=== PATIENT | female | born 1975 | race Two or more races ===

== ENCOUNTER → 2023-09-02 16:26 | Outpatient (REF) | payer BC, SELFPAY ==
[2023-09-02 18:54] LABS: Free T4 1.45 ng/dl (0.78-2.19)
[2023-09-02 19:08] LABS: TSH 0.46 uIU/ml (0.47-4.68)
[2023-09-04 11:49] LABS: Thyroid Peroxidase Ab (TPO) 0.3 IU/mL (0.0-9.0)
[2023-09-05 00:45] LABS: Thyroid Stim. Immunoglobulin <0.10 IU/L (<=0.54)
[2023-09-05 04:02] LABS: TSH Receptor Antibody <1.10 IU/L (<=1.75)
== END ==
LOC: REG 16:26
PROVIDERS: ATTENDING PHYSICIAN Internal Medicine Endocrinology, Diabetes & Metabolism; FAMILY PHYSICIAN Nurse Practitioner Family
DX: E04.2 Nontoxic multinodular goiter (principal)
CPT/HCPCS: 36415; 83520; 84439; 84443; 84445; 86376

== ENCOUNTER → 2023-09-24 11:33 | Outpatient (REF) | payer BC, SELFPAY | LOC: HWRAD 11:33 | PROVIDERS: ATTENDING PHYSICIAN Nurse Practitioner Family | DX: K59.00 Constipation, unspecified (principal); R11.0 Nausea; Z92.29 Personal history of other drug therapy; Z11.1 Encounter for screening for respiratory tuberculosis | CPT/HCPCS: 71046; 74018 ==

== ENCOUNTER → 2023-09-25 13:17 | Outpatient (REF) | payer BC, SELFPAY ==
[2023-10-10 00:31] LABS: HPV, High Risk Not Detected; HPV, High Risk Source Cervical
== END ==
LOC: CLAB 13:17
PROVIDERS: ATTENDING PHYSICIAN Advanced Practice Midwife
DX: Z01.419 Encounter for gynecological examination (general) (routine) without abnormal findings (principal); Z11.51 Encounter for screening for human papillomavirus (HPV)
CPT/HCPCS: 87624; G0123

== ENCOUNTER → 2023-09-25 14:48 | Outpatient (REF) | payer BC, SELFPAY | LOC: RAD 14:48 | PROVIDERS: ATTENDING PHYSICIAN Internal Medicine Endocrinology, Diabetes & Metabolism; FAMILY PHYSICIAN Nurse Practitioner Family | DX: E04.2 Nontoxic multinodular goiter (principal) | CPT/HCPCS: 76536 ==

== ENCOUNTER 2024-02-06 15:50 | Emergency (ER) | payer BC, SELFPAY ==
[2024-02-06 15:53] VITALS: BP 131/73
[2024-02-06 17:38] VITALS: BMI 23.3
--- NOTE | 2024-02-06 17:56 | ED.GENMED ---
History of Present Illness
General
Chief Complaint: Musculo-Skeletal Complaint
Source: patient
Exam Limitations: none
Time Seen by Provider: 02/06/24 17:56
Nursing documentation reviewed up to this point in time: agreed with
History of Present Illness
History of Present Illness:
48 y/o F
was in [place] 5 days ago and inversion injury to right ankle and has swelling pain an dbruising laterally
had xray in [place] which showed a fracture but she isnot sure where
she was put in a splint that was made of plaster but posterior and lateral onto the ankle and not fully casted
she flew home yesterday
and has had pain increased, only tried 200 mg motrin
no calf pain, numbness/tingling/weakness
Past History
Past History
ED Past Medical History: Hypothyroidism and Psychiatric (depression)
ED Past Surgical History: (X2)
Social History
Tobacco: Non-smoker
Alcohol: None
Drug: None
Personal:
Living: with family
Employment: Not employed
Family History
Family History: Other (Noncontributory)
Review of Systems
Review of Systems
Allergies reviewed?: Yes
All Other Systems: Not applicable
Phy Exam
Physical Exam
Physical Exam:
GENERAL: Alert , in no apparent distress, comfortable at rest
HEAD: NCAT
CV: 2+ DP PULSES B/L
NEUROLOGICAL: Alert and oriented, no focal neuro deficits, , 5/5 strength, sensation intact, unable to weight-bear on the right
SKIN: Warm and dry,
MUSCULOSKELETAL: Moderate right lateral ankle swelling with some bruising dependently inferior to the lateral malleolus, point tender to the lateral malleolus on the right side, stable ankle, no foot tenderness. Calf is soft, Achilles intact.
PSYCH: Normal and appropriate interaction.
Course
Orders/Labs/Results
Orders:
Orders
02/06/24 15:56
Ankle, Right 3 view CR [CR Ankle - Right Min 3 Views *] Urgent
Comment:
Reason For Exam: pain after a fall
02/06/24 18:37
Acetaminophen [Tylenol] 975 mg PO NOW STA
Ankle, Right 3 view CR [CR Ankle - Right Min 3 Views *] Urgent
Comment:
Reason For Exam: suspected fx, limited first xray
Foot, Right 3 View [CR Foot - Right Min 3 Views] Urgent
Comment:
Reason For Exam: suspected fx
Vital Signs
Initial and Last Documented VS:
Initial Vital Signs
Temp Pulse Resp BP Pulse Ox
98.2 F 64 20 131/73 98
02/06/24 15:53 02/06/24 15:53 02/06/24 15:53 02/06/24 15:53 02/06/24 15:53
Last Documented Vital Signs
Temp Pulse Resp BP Pulse Ox
98.2 F 66 20 123/71 98
02/06/24 15:53 02/06/24 20:00 02/06/24 15:53 02/06/24 20:00 02/06/24 15:53
MDM/Problems Addressed
Differential Diagnosis Includes:
Ankle fracture, ankle sprain
MDM/Problems Addressed:
48-year-old female who was [place] the [place] and had a an inversion right ankle injury and a fall. She is unable to weight-bear. Apparently there she had x-rays showing a fracture and was put in a plaster posterior splint. She had a lot of
pain on the flight home with her leg dependent seated on the long flight. Patient has not removed the splint. She has no tingling in her foot. On exam she has moderate swelling and bruising to the right lateral ankle which is stable. Her x-rays
initially were independently reviewed by me but because of the plaster splint was difficult to see. I remove the splint and refilled the ankle which shows a very subtle avulsion fracture of the right distal fibula which is likely from a ankle
sprain. This is a weightbearing as tolerated injury. She is unable to weight-bear and already has crutches but I will give her a walking boot so that when she can put pressure on her ankle she may. She was instructed to follow-up with orthopedics
this week.
*Critical Care Note
Total Time (30-74mins, 75-104mins- exclusive of procedures): Not Applicable
ED Attending Note
-
Portions of this chart may have been created with voice recognition software.� Occasional wrong word or��sound alike� substitutions may have occurred due to the inherent limitations of voice recognition software.
Discharge Plan
Departure
Patient Disposition: Home (Routine Discharge)
Date of Disposition: 02/06/24
Time of Disposition: 20:52
Patient with high blood pressure during this ER visit?: No
Condition: Fair
Covid-19: Not Applicable
Discharge Problem:
Avulsion fracture of ankle
Instructions: Ankle Fracture (DC), Sprain (DC)
Prescriptions:
No Action
flecainide 50 MG tablet
25 mg PO BID
metoprolol tartrate 25 MG tablet
25 mg PO BID
lorazepam 1 MG tablet
1 mg PO Q6HPRN PRN (Reason: anxiety) Qty: 8 0RF
Referrals:
Ty Dasilva CRNP [Family Provider] -
García Logan MD [Active] - Follow up in 5-7 days (ortho)
Stand Alone Forms: Return to Work
Activity Restrictions/Additional Instructions:
YOU HAVE A SMALL AVULSION FRACTURE OF YOUR DISTALFIBULA OF YOUR ANKLE
THIS IS CAUSED BY A SPRAINED LIGAMENT THAT PULLS THE PIECE OF BONE OFF
YOU CAN WEAR THE SPLINT OR THE BOOT AND AVOID PUTTING WEIGHT OR PUT WEIGHT ON IT TOLERATED, WHICH EVER FEELS BETTER
USE THE CRUTCHES TO HELP
MOTRIN AND TYLENOL FOR PAIN
ELEVATE YOUR FOOT
FOLLOW UP WITH ORTHOPEDICS THIS WEEK
RETURN FOR ANY CONCERNS.
Interventions
Interventions:
*Risk Screen - Suicide Last Done: 02/06/24 17:40
*General Assessment Last Done: 02/06/24 17:40
*Neglect/Abuse Screening Last Done: 02/06/24 17:40
ED- Fall Risk Assessment Last Done: 02/06/24 17:38
*ED COVID-19 Vaccine History Last Done: 02/06/24 17:38
*Nursing Disposition Last Done: 02/06/24 21:28
ED-Musculoskeletal Assessment Last Done: 02/06/24 17:39
Discharge Date and Time
Discharge Date/Time: 02/06/24 21:29
Print Language: LEBANESE
[2024-02-06] MEDS: TYLENOL 975 MG PO (18:41)
[2024-02-06 20:00] VITALS: BP 123/71
== END 2024-02-06 21:29 | disposition home or self-care (01) ==
LOC: EMR 15:50
PROVIDERS: EMERGENCY PHYSICIAN Student in an Organized Health Care Education/Training Program; FAMILY PHYSICIAN Nurse Practitioner Family
DX: S82.831A Other fracture of upper and lower end of right fibula, initial encounter for closed fracture (principal); W19.XXXA Unspecified fall, initial encounter; E03.9 Hypothyroidism, unspecified
CPT/HCPCS: 99283; 73610; 73630

== ENCOUNTER → 2024-03-05 09:20 | Outpatient (REF) | payer BC, SELFPAY | LOC: MRI 3T 09:20 | PROVIDERS: ATTENDING PHYSICIAN Physician Assistant; FAMILY PHYSICIAN Nurse Practitioner Family | DX: M25.571 Pain in right ankle and joints of right foot (principal) | CPT/HCPCS: 73721 ==

== ENCOUNTER → 2024-03-08 11:46 | Outpatient (REF) | payer BC, SELFPAY ==
[2024-03-08 16:05] LABS: Free T4 1.54 ng/dl (0.78-2.19)
[2024-03-08 16:19] LABS: TSH 0.42 uIU/ml (0.47-4.68)
[2024-03-11 02:24] LABS: Thyroid Peroxidase Ab (TPO) <0.3 IU/mL (0.0-9.0)
[2024-03-11 03:34] LABS: TSH Receptor Antibody <1.10 IU/L (<=1.75)
== END ==
LOC: HWLAB 11:46
PROVIDERS: ATTENDING PHYSICIAN Internal Medicine Endocrinology, Diabetes & Metabolism; FAMILY PHYSICIAN Nurse Practitioner Family
DX: E04.2 Nontoxic multinodular goiter (principal)
CPT/HCPCS: 36415; 83520; 84439; 84443; 84445; 86376

== ENCOUNTER → 2024-03-28 14:00 | Outpatient (REF) | payer BC, SELFPAY ==
[2024-03-30 22:05] LABS: Bacterial Vaginosis by TMA Positive; Candida glabrata by TMA Negative; Candida species by TMA Negative; Trichomonas vaginalis by TMA Negative
== END ==
LOC: CPAP 14:00
PROVIDERS: ATTENDING PHYSICIAN Advanced Practice Midwife
DX: B37.31 Acute candidiasis of vulva and vagina (principal); N76.0 Acute vaginitis
CPT/HCPCS: 81513; 87481; 87661

== ENCOUNTER 2024-04-14 16:45 | Outpatient (RCR) | payer BC, SELFPAY | END 2024-04-14 23:59 | disposition home or self-care (01) | LOC: RPT 16:45 | PROVIDERS: ATTENDING PHYSICIAN Physician Assistant; FAMILY PHYSICIAN Nurse Practitioner Family | DX: S82.839D Other fracture of upper and lower end of unspecified fibula, subsequent encounter for closed fracture with routine healing (principal); Z73.6 Limitation of activities due to disability | CPT/HCPCS: 97010; 97110; 97112; 97140; 97162; 97530 ==

== ENCOUNTER 2024-05-10 17:07 | Outpatient (RCR) | payer BC, SELFPAY | END 2024-05-10 23:59 | disposition home or self-care (01) | LOC: RPT 17:07 | PROVIDERS: ATTENDING PHYSICIAN Physician Assistant; FAMILY PHYSICIAN Nurse Practitioner Family | DX: S82.839D Other fracture of upper and lower end of unspecified fibula, subsequent encounter for closed fracture with routine healing (principal); Z73.6 Limitation of activities due to disability | CPT/HCPCS: 97110; 97112; 97140; 97530 ==

== ENCOUNTER → 2024-06-03 18:02 | Outpatient (REF) | payer BC, SELFPAY | LOC: CLAB 18:02 | PROVIDERS: ATTENDING PHYSICIAN Dentist Oral and Maxillofacial Surgery | DX: D16.5 Benign neoplasm of lower jaw bone (principal) | CPT/HCPCS: 88305 ==

== ENCOUNTER 2024-06-07 15:02 | Outpatient (RCR) | payer BC, SELFPAY | END 2024-06-07 23:59 | disposition home or self-care (01) | LOC: RPT 15:02 | PROVIDERS: ATTENDING PHYSICIAN Physician Assistant; FAMILY PHYSICIAN Nurse Practitioner Family | DX: S82.839D Other fracture of upper and lower end of unspecified fibula, subsequent encounter for closed fracture with routine healing (principal); Z73.6 Limitation of activities due to disability | CPT/HCPCS: 97110; 97112; 97140 ==

== ENCOUNTER → 2024-06-13 07:43 | Outpatient (REF) | payer BC, SELFPAY ==
[2024-06-13 09:38] LABS: ALT (SGPT) 16 U/L (0-35); AST (SGOT) 21 U/L (14-36); Albumin 4.4 g/dl (3.5-5.0); Alkaline Phosphatase 56 U/L (38-126); Blood Urea Nitrogen 15 mg/dl (7-17); Calcium 9.3 mg/dl (8.4-10.2); Carbon Dioxide 30 mmol/L (22-30); Chloride 102 mmol/L (98-107); Glucose 96 mg/dl (70-99); HDL Cholesterol 69 mg/dl; LDL Cholesterol, Calculated 113 mg/dl; Sodium 139 mmol/L (135-145); Total Bilirubin < 0.1 mg/dl (0.2-1.3); Total Cholesterol 196 mg/dl (50-199); Total Protein 6.8 g/dl (6.3-8.2); Triglyceride 72 mg/dl (10-149); Very Low Density Lipoprotein 14 mg/dl (0-30); eGFR > 60.00
[2024-06-13 09:45] LABS: % Basophils 1.2 % (0-2); % Eosinophils 2.4 % (0-6); % Immature Granulocytes 0.3 % (0-0.5); % Lymphocytes 31.4 % (20.5-51.1); % Monocytes 8.3 % (1.7-9.3); % Neutrophils 56.4 % (42.2-75.2); Absolute Eosinophils 0.1 10^3/uL (0-0.7); Absolute Lymphocytes 1.1 10^3/uL (1.2-3.4); Absolute Monocytes 0.3 10^3/uL (0.1-0.6); Absolute Neutrophils 1.9 10^3/uL (1.4-6.5); Hematocrit 40.9 % (37.0-47.0); Hemoglobin 13.3 g/dL (12.0-16.0); Mean Corp Hgb Conc. 32.5 g/dL (33.0-37.0); Mean Corpuscular Hgb 29.1 pg (27.0-31.0); Mean Corpuscular Volume 89.5 fL (81.0-99.0); Mean Platelet Volume 10.8 fL (7.4-10.4); Nucleated Red Blood Cells % 0 %; Platelet Count 243 10^3/uL (130-400); Red Blood Cell Count 4.57 10^6/uL (4.20-5.40); Red Cell Dist. Width 12.2 % (11.5-14.5); White Blood Cell Count 3.4 10^3/uL (4.8-10.8)
[2024-06-13 09:56] LABS: Vitamin D, 25-OH*** 37.8 ng/mL (30-80)
[2024-06-13 10:09] LABS: TSH Reflex To Free T4 0.58 uIU/ml (0.47-4.68)
== END ==
LOC: HWLAB 07:43
PROVIDERS: ATTENDING PHYSICIAN Nurse Practitioner Family
DX: J30.9 Allergic rhinitis, unspecified (principal); E05.90 Thyrotoxicosis, unspecified without thyrotoxic crisis or storm; E55.9 Vitamin D deficiency, unspecified; R00.2 Palpitations
CPT/HCPCS: 36415; 80053; 80061; 82306; 84443; 85025

== ENCOUNTER → 2024-06-22 16:02 | Outpatient (REF) | payer BC, SELFPAY | LOC: MRI 3T 16:02 | PROVIDERS: ATTENDING PHYSICIAN Student in an Organized Health Care Education/Training Program; FAMILY PHYSICIAN Nurse Practitioner Family | DX: M25.571 Pain in right ankle and joints of right foot (principal) | CPT/HCPCS: 73718; 73721 ==

== ENCOUNTER 2024-07-12 18:15 | Outpatient (RCR) | payer BC, SELFPAY | END 2024-07-12 23:59 | disposition home or self-care (01) | LOC: RPT 18:15 | PROVIDERS: ATTENDING PHYSICIAN Physician Assistant; FAMILY PHYSICIAN Nurse Practitioner Family | DX: S82.839D Other fracture of upper and lower end of unspecified fibula, subsequent encounter for closed fracture with routine healing (principal); Z73.6 Limitation of activities due to disability | CPT/HCPCS: 97110; 97112; 97140; 97530 ==

== ENCOUNTER → 2024-11-25 15:58 | Outpatient (REF) | payer BC, SELFPAY ==
[2024-11-25 16:51] LABS: % Basophils 0.7 % (0-2); % Eosinophils 1.8 % (0-6); % Lymphocytes 21.2 % (20.5-51.1); % Monocytes 7.6 % (1.7-9.3); % Neutrophils 68.7 % (42.2-75.2); Absolute Eosinophils 0.1 10^3/uL (0-0.7); Absolute Lymphocytes 1.2 10^3/uL (1.2-3.4); Absolute Monocytes 0.4 10^3/uL (0.1-0.6); Absolute Neutrophils 3.8 10^3/uL (1.4-6.5); Hematocrit 39.8 % (37.0-47.0); Hemoglobin 13.6 g/dL (12.0-16.0); Mean Corp Hgb Conc. 34.2 g/dL (33.0-37.0); Mean Corpuscular Hgb 29.6 pg (27.0-31.0); Mean Corpuscular Volume 86.7 fL (81.0-99.0); Mean Platelet Volume 11.1 fL (7.4-10.4); Nucleated Red Blood Cells % 0 %; Platelet Count 234 10^3/uL (130-400); Red Blood Cell Count 4.59 10^6/uL (4.20-5.40); Red Cell Dist. Width 12.9 % (11.5-14.5); White Blood Cell Count 5.6 10^3/uL (4.8-10.8)
[2024-11-25 17:00] LABS: Urine Albumin 1+ (Neg - Trace); Urine Bilirubin Negative (Negative); Urine Character Clear (Clear); Urine Color Yellow; Urine Glucose 1+ (Negative); Urine Ketone Negative (Negative); Urine Leukocyte 2+ (Negative); Urine Nitrite Negative (Negative); Urine Occult Blood 2+ (Negative); Urine Specific Gravity 1.025 (<1.030); Urine Urobilinogen Negative (Neg - 1+)
[2024-11-25 17:12] LABS: Urine Mucus Few; Urine Red Blood Cell 0-2 /HPF (0-2)
[2024-11-25 17:13] LABS: ALT (SGPT) 14 U/L (0-35); AST (SGOT) 17 U/L (14-36); Albumin 4.6 g/dl (3.5-5.0); Alkaline Phosphatase 61 U/L (38-126); Blood Urea Nitrogen 13 mg/dl (7-17); Calcium 9.6 mg/dl (8.4-10.2); Carbon Dioxide 27 mmol/L (22-30); Chloride 107 mmol/L (98-107); Glucose 122 mg/dl (70-99); Iron 76 ug/dl (37-170); Potassium 3.8 mmol/L (3.5-5.1); Sodium 142 mmol/L (135-145); Total Bilirubin 0.3 mg/dl (0.2-1.3); Total Protein 7.3 g/dl (6.3-8.2); Urine Bacteria Many (Negative); Urine White Cell 30-40 /HPF (0-5); eGFR > 60.00
[2024-11-25 17:22] LABS: Percent Saturation 22 % (20-50); Total Iron Binding Capacity 335 ug/dl (265-497)
[2024-11-25 17:31] LABS: Free T3 3.25 pg/ml (2.77-5.27); Free T4 1.19 ng/dl (0.78-2.19); Vitamin D, 25-OH*** 122 ng/mL (30-80)
[2024-11-25 17:49] LABS: Ferritin 15.4 ng/ml (6.24-137)
[2024-11-25 18:05] LABS: Vitamin B12 412 pg/ml (239-931)
== END ==
LOC: REG 15:58
DX: R10.9 Unspecified abdominal pain (principal); R53.83 Other fatigue
CPT/HCPCS: 36415; 74018; 80053; 81003; 81015; 82306; 82607; 82728; 83540; 83550; 84439; 84443; 84481; 85025; 87086

== ENCOUNTER → 2024-12-08 15:46 | Outpatient (REF) | payer BC, SELFPAY | LOC: RAD 15:46 | PROVIDERS: ATTENDING PHYSICIAN Specialist; FAMILY PHYSICIAN Nurse Practitioner Family | DX: N23 Unspecified renal colic (principal); R10.9 Unspecified abdominal pain | CPT/HCPCS: 74176; 87086 ==

== ENCOUNTER → 2024-12-19 06:43 | Outpatient (REF) | payer BC, SELFPAY ==
[2024-12-19 09:40] LABS: Urine Character Clear (Clear)
[2024-12-19 09:51] LABS: Urine Red Blood Cell 0-2 /HPF (0-2); Urine White Cell 0-2 /HPF (0-5)
[2024-12-19 10:03] LABS: Magnesium 2.1 mg/dl (1.6-2.3)
[2024-12-20 23:19] LABS: EBV-VCA IgM Antibodies <10.0 U/mL (0.0-43.9)
[2024-12-20 23:35] LABS: EBV-VCA IgG Antibodies >750.0 U/mL (0.0-21.9)
== END ==
LOC: HWLAB 06:43
PROVIDERS: ATTENDING PHYSICIAN Nurse Practitioner Family
DX: R10.9 Unspecified abdominal pain (principal); R00.2 Palpitations; R53.83 Other fatigue; T45.2X1A Poisoning by vitamins, accidental (unintentional), initial encounter
CPT/HCPCS: 36415; 81003; 81015; 83735; 86308; 86665; 87086

== ENCOUNTER → 2024-12-20 14:09 | Outpatient (REF) | payer BC, SELFPAY | LOC: REG 14:09 | PROVIDERS: ATTENDING PHYSICIAN Nurse Practitioner Family | DX: T45.2X1A Poisoning by vitamins, accidental (unintentional), initial encounter (principal) | CPT/HCPCS: 36415; 82330 ==

== ENCOUNTER 2025-04-01 09:52 | Emergency (ER) | payer OTHER, SELFPAY ==
[2025-04-01 09:54] VITALS: BP 146/83
[2025-04-01 11:11] VITALS: BP 132/70
[2025-04-01 11:39] LABS: Hematocrit 43.7 % (37.0-47.0); Hemoglobin 15.2 g/dL (12.0-16.0); Mean Corp Hgb Conc. 34.8 g/dL (33.0-37.0); Mean Corpuscular Volume 85.2 fL (81.0-99.0); Nucleated Red Blood Cells % 0 %; Platelet Count 239 10^3/uL (130-400); Red Cell Dist. Width 12.2 % (11.5-14.5)
[2025-04-01 11:54] VITALS: BMI 25.8
[2025-04-01 12:00] VITALS: BP 130/68
[2025-04-01 12:22] LABS: ALT (SGPT) 14 U/L (0-35); AST (SGOT) 20 U/L (14-36); Albumin 4.7 g/dl (3.5-5.0); Alkaline Phosphatase 59 U/L (38-126); Blood Urea Nitrogen 12 mg/dl (7-17); Calcium 9.4 mg/dl (8.4-10.2); Carbon Dioxide 26 mmol/L (22-30); Chloride 105 mmol/L (98-107); Estimated Creatinine Clearance 85 ml/min; Glucose 126 mg/dl (70-99); Magnesium 1.9 mg/dl (1.6-2.3); Potassium 4.1 mmol/L (3.5-5.1); Sodium 138 mmol/L (135-145); Total Protein 7.4 g/dl (6.3-8.2); eGFR > 60.00
[2025-04-01 12:25] LABS: TSH 0.27 uIU/ml (0.47-4.68)
[2025-04-01 13:00] VITALS: BP 127/74
[2025-04-01 14:00] VITALS: BP 128/72
--- NOTE | 2025-04-01 14:43 | ED.GENMED ---
History of Present Illness
General
Chief Complaint: Cardiac Symptoms
Source: patient
Time Seen by Provider: 04/01/25 10:28
History of Present Illness
History of Present Illness:
Note:
CHIEF COMPLAINT(S)
Palpitations and short-lived panic episode.
HISTORY OF PRESENT ILLNESS
The patient is a 49-year-old female presenting with complaints of a sudden episode of palpitations that occurred earlier today. She reported that her heart rate increased to 183 beats per minute. This episode was associated with a feeling of
breathlessness and a brief panic response. Her blood pressure was initially recorded at 140, but after stepping outside to take deep breaths, it decreased to 110. She described the incident as lasting a few minutes and accompanied by feelings of
warmth in her chest, as well as thickness in her head and arm. She denied chest pain but noted a hot and cold sensation in her chest. The patient has experienced similar episodes in the past, attributing them to panic attacks.
She has a history of thyroid issues, which fluctuate in levels, though her recent measures were reportedly normal despite being slightly low. She expressed that she managed this previously with adjustments by her physician, and currently, she is not
on thyroid medication. Recently diagnosed with vitamin deficiencies three months ago.
The patient denied smoking, alcohol consumption, and drug use. She reported being allergic to certain medications and takes [id number] Advil, but did not specify any prescription medications.
PAST MEDICAL AND SURGICAL HISTORY
The patient has a history of thyroid irregularities with levels fluctuating between high and low. Recent check-up confirmed normal albeit low thyroid function.
SOCIAL HISTORY
The patient denies any use of tobacco, alcohol, or illicit drugs.
REVIEW OF SYSTEMS
- Cardiovascular: Episodes of palpitations; reported decrease in heart rate after breathing exercises.
- Respiratory: Brief sensation of breathlessness during the episode.
- Neurological: Described a sensation of thickness in the head and arm during palpitations.
PHYSICAL EXAM
General: Alert, no acute distress.
Skin: Warm, dry.
Head: Normocephalic, atraumatic.
Neck: Supple, trachea midline.
Eyes, Ears, Nose, Mouth, and Throat: Oral mucosa moist.
Cardiovascular: Heart regular without murmur, heart rate normal sinus rhythm at a rate of 92, no edema.
Respiratory: Respirations are non-labored.
Gastrointestinal: Abdomen nondistended.
Back: Normal range of motion, normal alignment.
Musculoskeletal: Normal range of motion and strength.
Neurological: Alert and oriented to person, place, time, and situation, no focal neurological deficit observed.
Psychiatric: Cooperative, appropriate mood and affect.
PLAN
- Blood work to be drawn for electrolyte levels and general health assessment.
- Continuous monitoring of the heart rate to observe current rhythm.
- Consideration for placing a home monitor if recurrence of arrhythmia is suspected.
- Possible intravenous fluid administration to maintain vitals and hydration.
- Advisement for follow-up with a tennis camp instructor for possible future arrhythmia episodes.
DIFFERENTIAL DIAGNOSIS
The Differential Diagnosis includes, in no particular order and is not limited to:
1. Paroxysmal supraventricular tachycardia
2. Anxiety-induced palpitations
3. Hyperthyroidism
4. Panic disorder
5. Atrial fibrillation
6. Hyperventilation syndrome
7. Hypoglycemia
8. Electrolyte imbalance
9. Thyroid dysfunction
10. Cardiac arrhythmia
CARE-UPDATE
04/01/25 - 14:22
Patient exhibits occasional episodes of atrial tachycardia, with heart rate fluctuations observed between 102 and 117 bpm, deemed electrical in nature without indications of coronary issues. Current labs, aside from pending thyroid results, show no
abnormalities. No evidence of myocardial infarction. Discussed management options: referral to cardiology for further evaluation or initiation of low-dose medication to stabilize heart rate. History of prior ablation for arrhythmia, with no
subsequent medication prescribed; thyroid management previously recommended. Plan to liaise with Dr. Hernandez partner for coordinated care.
EKG
My independent EKG interpretation is:
- Time of EKG: Not specified
- Rhythm: Sinus rhythm
- Heart Rate: 100 beats per minute
- [place]: Normal
- Intervals: Normal
- Notable Findings: Variability in the rate across the EKG
- Abnormalities: None specified
Disposition:
SUMMARY OF ENCOUNTER
The patient is a 49-year-old female with a history of supraventricular tachycardia (SVT) and previous ablation presenting with a reported heart rate of 180 beats per minute at home. In the emergency department, her heart rate ranged from the high
80s to 120, suggesting a possible natural tachycardia or missed SVT event. Laboratory tests showed normal CBC and CMP, with a slightly low TSH of 0.27 and slightly high T4 at 14.1. The case was discussed with cardiology, and the decision was made to
restart metoprolol (brand name Toprol-XL) at 12.5 mg. Cardiology will arrange for a Holter monitor and outpatient follow-up.
MANAGEMENT OF THE PATIENTS CARE WAS DISCUSSED WITH
Discussed with Dr. Correia, tennis camp instructor.
PLAN
Restart metoprolol (Toprol-XL) 12.5 mg and arrange for a Holter monitor and follow-up with cardiology as an outpatient.
INDEPENDENT REVIEW OF LABS AND INTERPRETATION OF TESTS
- My independent review of CBC is normal.
- My independent review of CMP is normal.
- My independent review of thyroid function tests shows TSH is slightly low at 0.27 and T4 is slightly high at 14.1.
FOLLOW-UP INSTRUCTIONS
Arrange follow-up with cardiology for Holter monitoring and further evaluation.
MEDICATION RECONCILIATION
Metoprolol (Toprol-XL) 12.5 mg to be restarted.
MEDICAL DECISION MAKING
- Number and Complexity of Problems Addressed: Chronic conditions affecting care include supraventricular tachycardia and thyroid dysfunction.
- Data:
- Category 1:
- My independent review of CBC, CMP, and thyroid function tests.
- Category 3: Discussion of management was conducted with tennis camp instructor Dr. Correia.
- Risk: Prescription medication was prescribed, specifically metoprolol (Toprol-XL) 12.5 mg. Consideration of Admission/Observation: Escalation of care including admission/observation was considered given the complexity and risk of the patients
presenting complaint, exam findings, and/or underlying comorbidities. However, ultimately, I feel the patient is safe for outpatient management with close follow-up. Reasoning: Work-up reassuring, does not reveal any acute life/organ-threatening
processes, the patients symptoms well controlled upon reevaluation, reexamination is reassuring, vitals are stable, patient agreeable with discharge, reliable for follow-up.
DIAGNOSIS
- Supraventricular tachycardia (I47.1)
- Thyroid dysfunction (E07.9)
Past History
Past History
ED Past Medical History: Hypothyroidism and Psychiatric (depression)
ED Past Surgical History: (X2)
Social History
Tobacco: Non-smoker
Alcohol: None
Drug: None
Personal:
Living: with family
Employment: Not employed
Family History
Family History: Other (Noncontributory)
Phy Exam
Physical Exam
Physical Exam:
.
Course
Orders/Labs/Results
Orders:
Orders
04/01/25 09:55
EKG [Electrocardiogram (*1)] Urgent
Reason for Study: Palpitations
EKG- Treatment ONCE
04/01/25 11:27
Complete Blood Count/With Diff Urgent
Comprehensive Metabolic Panel Urgent
Magnesium Urgent
TSH Urgent
Total Thyroxine Urgent
Comment: ADD ON
04/01/25 13:30
Add On- LAB Urgent
Tests Added?: T3, T4
Abnormal Lab Results
04/01/25
11:27
MPV 10.6 H fL
(7.4-10.4)
Absolute Neuts (auto) 6.7 H 10^3/uL
(1.4-6.5)
Absolute Lymphs (auto) 0.7 L 10^3/uL
(1.2-3.4)
Neutrophils % 85.4 H %
(42.2-75.2)
Lymphocytes % 8.8 L %
(20.5-51.1)
Glucose 126 H mg/dl
(70-99)
TSH 0.27 L uIU/ml
(0.47-4.68)
Thyroxine (T4) 14.10 H ug/dl
(5.5-11.0)
04/01/25 11:27
04/01/25 11:27
Vital Signs
Initial and Last Documented VS:
Initial Vital Signs
Temp Pulse Resp BP Pulse Ox
97.7 F 88 16 146/83 100
04/01/25 09:54 04/01/25 09:54 04/01/25 09:54 04/01/25 09:54 04/01/25 09:54
Last Documented Vital Signs
Temp Pulse Resp BP Pulse Ox
97.7 F 100 20 128/72 100
04/01/25 09:54 04/01/25 14:00 04/01/25 14:00 04/01/25 14:00 04/01/25 14:00
*Pulse Oximetry
SaO2: 100
Oxygen Mode of Delivery: Room air
Patient hypoxic: no
*Critical Care Note
Total Time (30-74mins, 75-104mins- exclusive of procedures): Not Applicable
ED Attending Note
-
Portions of this chart may have been created with voice recognition software.� Occasional wrong word or��sound alike� substitutions may have occurred due to the inherent limitations of voice recognition software.
Discharge Plan
Departure
Patient Disposition: Home (Routine Discharge)
Date of Disposition: 04/01/25
Time of Disposition: 14:44
Patient with high blood pressure during this ER visit?: No
Discharge Problem:
Atrial tachycardia, Supraventricular tachycardia, Thyroid dysfunction
Instructions: Tachycardia, Supraventricular tachycardia (SVT)
Prescriptions:
New
metoprolol succinate [Toprol XL] 25 mg tablet extended release 24 hr
25 mg PO DAILY Qty: 30 0RF
No Action
flecainide 50 MG tablet
25 mg PO BID
metoprolol tartrate 25 MG tablet
25 mg PO BID
lorazepam 1 MG tablet
1 mg PO Q6HPRN PRN (Reason: anxiety) Qty: 8 0RF
Referrals:
Ty Dasilva CRNP [Family Provider, Family Practice]
Activity Restrictions/Additional Instructions:
Please see cardiology next 3 days for follow-up and reevaluation and to set up a Holter monitor. Return immediately for chest pain, shortness of breath, lightheadedness, passing out episode, palpitations or any other concerns. It is likely that
cardiology will call you on Thursday to set up follow-up.
Please have your doctor follow-up on your thyroid studies.
Interventions
Interventions:
*Risk Screen - Suicide Last Done: 04/01/25 09:54
*General Assessment Last Done: 04/01/25 11:55
*Neglect/Abuse Screening Last Done: 04/01/25 09:54
*ED- Fall Risk Assessment Last Done: 04/01/25 11:55
*ED COVID-19 Vaccine History Last Done: 04/01/25 11:55
*ED Influenza Vaccine History Last Done: 04/01/25 11:55
ED- Pulmonary Assessment Last Done: 04/01/25 12:30
ED- Cardiac Assessment Last Done: 04/01/25 12:30
Discharge Date and Time
Print Language: SAUDI ARABIAN
== END 2025-04-01 15:03 | disposition home or self-care (01) ==
LOC: EMR 09:52
PROVIDERS: EMERGENCY PHYSICIAN Emergency Medicine; FAMILY PHYSICIAN Nurse Practitioner Family
DX: I47.19 Other supraventricular tachycardia (principal); E07.9 Disorder of thyroid, unspecified
CPT/HCPCS: 99284; 80053; 83735; 84436; 84443; 84480; 85025; 93005

== ENCOUNTER → 2025-04-14 08:59 | Outpatient (REF) | payer OTHER, SELFPAY ==
[2025-04-14 11:01] LABS: TSH 0.24 uIU/ml (0.47-4.68)
== END ==
LOC: WDC 08:59
PROVIDERS: ATTENDING PHYSICIAN Advanced Practice Midwife; PRIMARYCARE PHYSICIAN Nurse Practitioner Family; REFERRING PHYSICIAN Internal Medicine Endocrinology, Diabetes & Metabolism
DX: E04.2 Nontoxic multinodular goiter (principal); N64.4 Mastodynia
CPT/HCPCS: 36415; 76642; 77063; 77067; 84439; 84443

== ENCOUNTER 2025-04-18 22:44 | Emergency (ER) | payer OTHER, SELFPAY ==
[2025-04-18 22:48] VITALS: BP 140/86
[2025-04-18 23:03] VITALS: BP 140/81
[2025-04-19] VITALS: BP 131/78
[2025-04-19 00:29] LABS: Hematocrit 39.8 % (37.0-47.0); Hemoglobin 13.6 g/dL (12.0-16.0); Mean Corp Hgb Conc. 34.2 g/dL (33.0-37.0); Mean Corpuscular Volume 85.4 fL (81.0-99.0); Nucleated Red Blood Cells % 0 %; Platelet Count 222 10^3/uL (130-400); Red Cell Dist. Width 12.5 % (11.5-14.5)
[2025-04-19 00:50] LABS: ALT (SGPT) 14 U/L (0-35); AST (SGOT) 19 U/L (14-36); Albumin 4.7 g/dl (3.5-5.0); Alkaline Phosphatase 54 U/L (38-126); Blood Urea Nitrogen 13 mg/dl (7-17); Calcium 9.6 mg/dl (8.4-10.2); Carbon Dioxide 28 mmol/L (22-30); Chloride 106 mmol/L (98-107); Glucose 98 mg/dl (70-99); Potassium 4.5 mmol/L (3.5-5.1); Sodium 142 mmol/L (135-145); Total Protein 7.2 g/dl (6.3-8.2); eGFR > 60.00
[2025-04-19 01:00] VITALS: BP 121/75
--- NOTE | 2025-04-19 01:48 | ED.GENMED ---
History of Present Illness
General
Chief Complaint: Blood Pressure Problem
Time Seen by Provider: 04/19/25 01:05
History of Present Illness
History of Present Illness:
49-year-old female with history of atrial tachycardia presenting to the emergency department for elevated blood pressure and heart rate. Patient reports that symptoms started prior to arrival. She notes that she woke up shaking and checked her
blood pressure, noted that it was elevated. Her heart rate was also high. Patient reports that she was seen in the hospital on 03/22 for similar symptoms, found to be in atrial tachycardia. Her thyroid levels were also off. She was restarted on
metoprolol, however has only taken 2 doses of the metoprolol. She also has since made an appointment with her fashion adviser. Her cardiology appointment is not until May. Reports history of tachycardia in the past, at which time she did
require an ablation several years ago. Notes some midline chest discomfort. Difficulty breathing. Denies history of PE, recent surgery, recent travel. Denies additional acute medical complaints
Past History
Past History
ED Past Medical History: Hypothyroidism and Psychiatric (depression)
ED Past Surgical History: (X2)
Social History
Tobacco: Non-smoker
Alcohol: None
Drug: None
Personal:
Living: with family
Employment: Not employed
Family History
Family History: Other (Noncontributory)
Phy Exam
Physical Exam
Physical Exam:
General: Well-appearing, no clinical signs of dehydration, nontoxic and in no acute distress
HEENT: protecting airway
Neck: appears supple
CV: Tachycardia, regular rhythm, no evidence of cyanosis
Resp: No accessory muscle use, no increased work of breathing, lungs clear to auscultation bilaterally
Abd: No distention
Extremities: No deformities, no swelling
Neuro: alert, no focal neurologic deficit
: deferred
Rectal: deferred
Psych: Normal affect
Skin: Intact
Scores
Heart Score for Chest Pain Patients
STEMI patient?: No
History: Slightly or Non-Suspicious
ECG: Normal
Age: >45 - <65 years
Risk Factors: 1 or 2 Risk Factors
Troponin: </= Normal Limit
Heart Score for Chest Pain Patients: 2
Heart Score Risk: 2.5% MACE over next 6 weeks
Course
Orders/Labs/Results
Orders:
Orders
04/18/25 22:47
CBC/With Diff [Complete Blood Count/With Diff] Urgent
CMP [Comprehensive Metabolic Panel] Urgent
04/18/25 22:48
EKG [Electrocardiogram (*1)] Urgent
Reason for Study: Tachycardia
EKG- Treatment ONCE
04/19/25 01:49
D-Dimer Urgent
Metoprolol [Lopressor] 25 mg PO NOW STA
Abnormal Lab Results
04/19/25
00:18
MPV 10.6 H fL
(7.4-10.4)
Absolute Lymphs (auto) 0.8 L 10^3/uL
(1.2-3.4)
Neutrophils % 80.7 H %
(42.2-75.2)
Lymphocytes % 11.9 L %
(20.5-51.1)
04/19/25 00:18
04/19/25 00:18
Vital Signs
Initial and Last Documented VS:
Initial Vital Signs
Temp Pulse Resp BP Pulse Ox
98.7 F 104 15 140/86 99
04/18/25 22:48 04/18/25 22:48 04/18/25 22:48 04/18/25 22:48 04/18/25 22:48
Last Documented Vital Signs
Temp Pulse Resp BP Pulse Ox
98.7 F 89 16 142/88 99
04/18/25 22:48 04/19/25 02:15 04/19/25 02:15 04/19/25 02:00 04/19/25 02:15
MDM/Problems Addressed
MDM/Problems Addressed:
49-year-old female with prior history of tachycardia presenting to the emergency department for elevated blood pressure and heart rate. Vital signs on arrival significant for high blood pressure and tachycardia, however resolved without
intervention.
On exam patient is resting comfortably, no acute distress or discomfort. Unremarkable cardiac and pulmonary exam, noted to be in a sinus rhythm on examination and on the monitor. EKG confirms a sinus rhythm. Patient is hospital visit reviewed
from 04/01. At that time, case was discussed with cardiology, thought to have an atrial tachycardia patient was restarted on metoprolol. However, patient notes that she has only taken the medication twice since being seen. Patient also with
slightly low TSH, however already has an appointment scheduled with endocrine. Screening labs obtained prior to my assessment today, unremarkable. While in examination room, heart rate is currently normalized. Without concern for any significant
arrhythmia at this time. Will add on D-dimer and continue to monitor.
02:30 - D-dimer within normal limits. Heart rate remains normal. Dose of metoprolol administered in the emergency department for patient's tachycardia. However at this time feel stable for discharge with blood pressure normalized. Advise close
cardiology follow-up. She notes that her primary care doctor is going to call for a sooner appointment for the patient. I advised compliance with the metoprolol daily. Return precautions discussed and patient verbalized understanding
*Pulse Oximetry
SaO2: 98
Oxygen Mode of Delivery: Room air
Patient hypoxic: no
*EKG
Interpreted by ED Provider?: Yes
EKG Intrepretation Date: 04/19/25
EKG Intrepretation Time: 02:33
Interpretation: normal
Comparison EKG: no changes
Heart Rate: 117
Rate: tachycardiac
Rhythm: sinus
[place]: normal axis
Interval: normal interval
QRS Pattern: normal QRS
Ischemia: no ischemia
*Critical Care Note
Total Time (30-74mins, 75-104mins- exclusive of procedures): Not Applicable
ED Attending Note
-
Portions of this chart may have been created with voice recognition software.� Occasional wrong word or��sound alike� substitutions may have occurred due to the inherent limitations of voice recognition software.
Discharge Plan
Departure
Prescriptions:
No Action
flecainide 50 MG tablet
25 mg PO BID
metoprolol tartrate 25 MG tablet
25 mg PO BID
lorazepam 1 MG tablet
1 mg PO Q6HPRN PRN (Reason: anxiety) Qty: 8 0RF
metoprolol succinate [Toprol XL] 25 mg tablet extended release 24 hr
25 mg PO DAILY Qty: 30 0RF
Referrals:
Ty Dasilva CRNP [Family Provider, Family Practice]
Interventions
Interventions:
*Risk Screen - Suicide Last Done: 04/18/25 22:48
*General Assessment Last Done: 04/18/25 22:48
*Neglect/Abuse Screening Last Done: 04/18/25 22:48
*ED COVID-19 Vaccine History Last Done: 04/18/25 22:48
*ED Influenza Vaccine History Last Done: 04/18/25 22:48
ED- Cardiac Assessment Last Done: 04/18/25 23:15
ED- Neurological Assessment Last Done: 04/18/25 23:15
ED- Pulmonary Assessment Last Done: 04/18/25 23:15
Discharge Date and Time
Print Language: ZAMBIAN
[2025-04-19] MEDS: LOPRESSOR 25 MG PO (01:57)
[2025-04-19 02:00] VITALS: BP 142/88
[2025-04-19 02:17] LABS: D-Dimer 0.40 ug/mlFEU (0.00-0.50)
== END 2025-04-19 02:50 | disposition home or self-care (01) ==
LOC: EMR 22:44
PROVIDERS: EMERGENCY PHYSICIAN Student in an Organized Health Care Education/Training Program; FAMILY PHYSICIAN Nurse Practitioner Family
DX: R00.0 Tachycardia, unspecified (principal); E03.9 Hypothyroidism, unspecified
CPT/HCPCS: 99283; 80053; 85025; 85379; 93005

== ENCOUNTER → 2025-05-01 08:36 | Outpatient (REF) | payer OTHER, SELFPAY | LOC: RCS 08:36 | PROVIDERS: ATTENDING PHYSICIAN Internal Medicine Cardiovascular Disease; FAMILY PHYSICIAN Nurse Practitioner Family | DX: M54.12 Radiculopathy, cervical region (principal); R00.2 Palpitations; E05.90 Thyrotoxicosis, unspecified without thyrotoxic crisis or storm; I47.10 Supraventricular tachycardia, unspecified | CPT/HCPCS: 93225; 93226 ==

== ENCOUNTER → 2025-05-08 08:15 | Outpatient (REF) | payer MEDICARE, SELFPAY | LOC: HWRCS 08:15 | PROVIDERS: ATTENDING PHYSICIAN Internal Medicine Cardiovascular Disease; FAMILY PHYSICIAN Nurse Practitioner Family | DX: M54.12 Radiculopathy, cervical region (principal); R00.2 Palpitations; R00.0 Tachycardia, unspecified; E05.90 Thyrotoxicosis, unspecified without thyrotoxic crisis or storm; I47.10 Supraventricular tachycardia, unspecified | CPT/HCPCS: 93306 ==

== ENCOUNTER → 2025-05-10 10:16 | Outpatient (REF) | payer MEDICARE, SELFPAY | LOC: RCS 10:16 | PROVIDERS: ATTENDING PHYSICIAN Internal Medicine Cardiovascular Disease; FAMILY PHYSICIAN Nurse Practitioner Family | DX: R00.2 Palpitations (principal); R00.0 Tachycardia, unspecified; E05.90 Thyrotoxicosis, unspecified without thyrotoxic crisis or storm; I47.10 Supraventricular tachycardia, unspecified; F41.9 Anxiety disorder, unspecified | CPT/HCPCS: 93017 ==